=== PATIENT | male | born 1940 | race Caucasian/White ===

== ENCOUNTER 2022-04-21 08:07 | Inpatient (IN) | payer MEDICARE, OTHER, SELFPAY ==
[2022-04-21] VITALS (19 sets, daily range): BP systolic 79–121; BP diastolic 48–90; PULSE 89–144; RESP 16–28; TEMP 35.9–37.1; O2SAT 96–100; BMI 23.8; BMI 21.8
--- NOTE | 2022-04-21 08:13 | RAD_ITS ---
STUDY: X-RAY CHEST REASON FOR EXAM: Male, 81 years old. Dyspnea TECHNIQUE: Single AP portable view of the chest. The patient is rotated to the right. COMPARISON: None. FINDINGS: There is elevation of the bilateral hemidiaphragms. The lung bases are mostly obscured. The patient is rotated to the right. There is a focus of subtle linear interstitial thickening in the right upper lobe. There is no demonstrated pleural abnormality. There is borderline cardiomegaly. Normal mediastinum and minesh. Normal visualized pulmonary arteries. Normal visualized aortic arch and descending thoracic aorta. Normal visualized thoracic spine. Normal visualized ribs, clavicles, and shoulders. Postoperative changes right upper quadrant status post cholecystectomy. RAD/Chest 1 View (Portable) IMPRESSION: Limited study. The patient is rotated towards the right. No visualized focal infiltrate. Findings suggest scarring possible underlying emphysematous change right upper lobe. Electronically Signed: Yoselin Vasquez MD at 9:31 EST Reading Location ID and State: [facility] / [place] Tel , Service support ,
--- NOTE | 2022-04-21 08:15 | ED.VIS.DYS ---
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 He woke up this morning short of breath. He denies any palpitations. In A. fib with RVR per EMS, patient has no idea if he has a history of this or not and cannot provide any other history except for confirming the above and ROS questions. Patient evaluated prior to any family arriving. He states he is on aspirin and clopidogrel but does not know any of his other medications. No records in the system/EMR for this gentleman. Family later arrived and states he has been following at [facility] and known about A. fib for the past month or 2 only. Not anticoagulated, but he has been on clopidogrel because of peripheral arterial disease in the right carotid that led to his stroke involving the left side. [facility] Medical History Stroke Medical History unable to obtain unable to obtain Home Medications amlodipine 2.5 mg tablet 2.5 mg PO DAILY 04/21/22 [History Last Taken Unknown] aspirin 81 mg tablet,delayed release 81 mg PO DAILY 04/21/22 [History Last Taken Unknown] atorvastatin 10 mg tablet 10 mg PO DAILY 04/21/22 [History Last Taken Unknown] clopidogrel 75 mg tablet 75 mg PO DAILY 04/21/22 [History Last Taken Unknown] finasteride 5 mg tablet 5 mg PO DAILY 04/21/22 [History Last Taken Unknown] levetiracetam 500 mg tablet 500 mg PO BID 04/21/22 [History Last Taken Unknown] lisinopril 10 mg tablet 10 mg PO DAILY 04/21/22 [History Last Taken Unknown] potassium chloride 20 mEq tablet,extended release(part/cryst) (Klor-Con M) 20 meq PO BID 04/21/22 [History Last Taken Unknown] propranolol 160 mg capsule,24 hr,extended release 160 mg PO DAILY 04/21/22 [History Last Taken Unknown] Allergy/AdvReac Type Severity Reaction Status Date / Time niacin Allergy Hives Verified 04/21/22 08:46 [From Niaspan Extended-Release] Surgical History (Updated 04/21/22 @ 08:59 by Wilda Cespedes) History of left hip replacement History of left-sided carotid endarterectomy Social History Smoking Status: Former smoker ROS ROS ED Review of Systems ROS Unobtainable: other Details: limited due to very hard of hearing Constitutional Constitutional ED: Denies chills or fever(s) Eyes Eyes: Denies change in vision or diplopia ENT ENT ED: Denies rhinorrhea or sore throat Cardiovascular Cardiovascular: Denies chest pain or palpitations Respiratory/Chest Respiratory/Chest: Reports dyspnea; Denies cough Gastrointestinal Gastrointestinal: Denies abdominal pain, diarrhea, nausea or vomiting Genitourinary Genitourinary ED: Denies dysuria or hematuria Musculoskeletal Musculoskeletal: Denies back pain or neck pain Integumentary Denies abscess or rash Neurologic Neurologic: Denies headache(s), paresthesias or weakness Psychiatric Psychiatric: Denies anxiety or suicidal thoughts Hematologic/Lymphatic Hematologic/Lymphatic: Reports easy bleeding and easy bruising EXAM Physical Exam Const Vital Signs: 04/21/22 08:07 04/21/22 08:07 04/21/22 08:54 Temperature 96.6 F L Temperature Source Temporal Pulse Rate 144 H 137 H Respiratory Rate 28 H 22 H Blood Pressure 87/48 L 101/70 89/53 L Blood Pressure Mean 61 80 65 Pulse Ox 100 Oxygen Delivery Method Nasal Cannula Oxygen Flow Rate (L/min) 4 04/21/22 08:11 04/21/22 09:00 04/21/22 10:11 Temperature 96.6 F L 97.6 F L Temperature Source Temporal Temporal Pulse Rate 144 H 90 94 Respiratory Rate 28 H 18 20 H Blood Pressure 87/48 L 79/55 L 79/65 L Blood Pressure Mean 61 63 69 Pulse Ox 97 99 99 Oxygen Delivery Method Nasal Cannula Nasal Cannula Nasal Cannula Oxygen Flow Rate (L/min) 4 04/21/22 10:00 04/21/22 11:00 04/21/22 13:17 Temperature Temperature Source Pulse Rate 96 89 98 Respiratory Rate 20 H 20 H 19 H Blood Pressure 90/51 L 109/71 114/90 H Blood Pressure Mean 64 83 98 Pulse Ox 99 100 100 Oxygen Delivery Method Nasal Cannula Nasal Cannula Nasal Cannula Oxygen Flow Rate (L/min) 4 04/21/22 13:31 04/21/22 14:16 04/21/22 14:18 Temperature 98.8 F 98.3 F 98.3 F Temperature Source Temporal Temporal Temporal Pulse Rate 113 H 101 H 105 H Respiratory Rate 18 22 H 20 H Blood Pressure 121/69 H 108/81 H 108/81 H Blood Pressure Mean 86 90 90 Pulse Ox 99 100 100 Oxygen Delivery Method Nasal Cannula Room Air Venturi Mask Oxygen Flow Rate (L/min) 3 4 Positive well nourished and well developed General Appearance ED: well developed and NAD HEENT Reports moist mucous membranes normocephalic and atraumatic Eyes PERRL and EOMs intact bilaterally Neck full ROM, no lymphadenopathy, supple and no JVD Resp clear to auscultation bilaterally Resp Narrative: tachypneic, no distress. able to converse. Cardio Rate: tachycardic Rhythm: abnormal rhythm irregularly irregular GI non-tender and non-distended Auscultation: normoactive bowel sounds Palpation: soft Back/Spine no CVA tenderness General Back: other FROM Extremity normal to inspection General Extremety ED: Yes edema; Negative for pulses abnormal or tenderness General Extremity: edema bilateral lower extremity Details: mild (Worse on the left); Negative for pulses abnormal Neuro oriented x3 and CN's II-XII intact bilaterally Neuro Narrative: Paralyzed left upper and lower extremities with also decreased sensation. Brisk cap refill. Sensorium / Orientation: awake and alert Psych mental status grossly normal Skin no rashes or lesions noted and no wounds Sepsis Attestation Sepsis Attestation: Agree w/Sepsis (Initially VS abnormal thought more likely to A. fib with RVR than infection) Date exam was performed: 04/21/22 Time exam was performed: 09:00 Possible Source of Sepsis: Pulmonary and Genitourinary (after testing) Sepsis Organ Dysfunction Criteria Present: SBP < 90 mmHg or MAP < 65 mmHg, Lactic Acid > 2 mmol/L and Serum CO2 < 20 mmol/L (on BMP) Fluid Resuscitation Fluid resuscitation indicated?: Yes Fluid Resuscitation ordered: 30 ml/kg fluid bolus ordered Sepsis Note Date exam was performed: 04/21/22 Time exam was performed: 14:00 Sepsis Attestation: Sepsis re-evaluation was performed Response to fluids: Fluid responsive hypotension MDM MDM MDM Narrative Medical decision making narrative: Patient blood pressure is on the low side, he was bolused with normal saline simultaneous with giving him Cardizem 15 mg IV. This slowed his rate down to the 80-90s and he felt much better without any other treatments for his dyspnea. We have no records on him, and he is not anticoagulated. He does not know if he has a history of A. fib or not. Therefore I did more of a work-up than I would have otherwise including a D-dimer to rule out pulmonary embolus. It was elevated, we attempted to send him for CT angiography to rule out pulmonary embolus, which I made a low suspicion for given the rest of the work-up, however this patient is a very difficult stick, we were not able to obtain more proximal IV access than his hand, and so we are not able to physically perform CT angiography. I did send him for a plain CT of the chest in order to rule out occult pneumonia, it was negative for that, it took a while for him to produce enough urine to send, this is likely due to some dehydration, and this ended up showing lots of infection indicators. Lab was not able to obtain blood cultures due to him being a very difficult stick, he looks well since we brought his blood pressure up with fluids, we will make sure he gets the full 30 cc/kg bolus, has now that he has an infection, he meets criteria for sepsis due to his elevated lactate. He does not require pressors at this time, his blood pressure is now holding stable 121/69, and he is breathing better since we rate controlled him. Plan is for admission, empirically given Rocephin IV 1 g. I did send his urine for a culture. Discussed further with family, they confirmed that the patient has a living will that states he is DNR CCA. Lab Data Attestation: I reviewed the patient's lab results. Labs: Laboratory Results - last 24 hr 04/21/22 04/21/22 04/21/22 09:27 09:27 09:27 WBC 25.5 H RBC 4.49 L Hgb 13.3 Hct 41.1 MCV 91.5 MCH 29.6 MCHC 32.4 RDW Std Deviation 46.9 H RDW Coeff of Kan 13.9 Plt Count 308 MPV 9.8 Immature Gran % (Auto) 0.400 Neut % (Auto) 93.0 H Lymph % (Auto) 2.6 L Moore % (Auto) 3.8 Eos % (Auto) 0.0 Baso % (Auto) 0.2 Absolute Neuts (auto) 23.7 H Absolute Lymphs (auto) 0.66 L Nucleated RBC % 0 Platelet Estimate ADEQUATE RBC Morphology NORM C+C D-Dimer Quant (PE/DVT) 2.44 H* Sodium 144 Potassium 4.1 Chloride 117 H Carbon Dioxide 17.0 L Anion Gap 10 BUN 37 H Creatinine 1.19 Estim Creat Clear Calc 50.09 Est GFR (MDRD) Af Amer 75 Est GFR (MDRD) Non-Af 62 BUN/Creatinine Ratio 31.1 H Glucose 90 Lactic Acid Calcium 8.5 Troponin I High Sens 6 B-Natriuretic Peptide Urine Color Urine Clarity Urine pH Ur Specific Frannie Urine Protein Urine Glucose (UA) Urine Ketones Urine Occult Blood Urine Nitrite Urine Bilirubin Urine Urobilinogen Ur Leukocyte Esterase Urine RBC Urine WBC Ur Squamous Epith Cells Urine Bacteria Urine Mucus 04/21/22 04/21/22 04/21/22 09:27 11:00 13:25 WBC RBC Hgb Hct MCV MCH MCHC RDW Std Deviation RDW Coeff of Kan Plt Count MPV Immature Gran % (Auto) Neut % (Auto) Lymph % (Auto) Moore % (Auto) Eos % (Auto) Baso % (Auto) Absolute Neuts (auto) Absolute Lymphs (auto) Nucleated RBC % Platelet Estimate RBC Morphology D-Dimer Quant (PE/DVT) Sodium Potassium Chloride Carbon Dioxide Anion Gap BUN Creatinine Estim Creat Clear Calc Est GFR (MDRD) Af Amer Est GFR (MDRD) Non-Af BUN/Creatinine Ratio Glucose Lactic Acid 4.5 H* Calcium Troponin I High Sens B-Natriuretic Peptide 254.1 H Urine Color Ivett Urine Clarity Sl. Cloudy Urine pH 5.0 Ur Specific Frannie 1.015 Urine Protein 30 H Urine Glucose (UA) Normal Urine Ketones 5 H Urine Occult Blood 25 H Urine Nitrite Positive H Urine Bilirubin 3 H Urine Urobilinogen 8 H Ur Leukocyte Esterase 500 H Urine RBC 0 SEEN Urine WBC 10-25 SEEN Ur Squamous Epith Cells 0 SEEN Urine Bacteria 4+ Urine Mucus 0 SEEN Radiography Chest X-Ray - ED: 1 View, Read by ED Physician, No Acute Disease (limited due to rotation) and Chronic Changes Diagnostic Testing: Clinical Impression(s) from Imaging Studies Chest X-Ray 04/21/22 08:13 IMPRESSION: Limited study. The patient is rotated towards the right. No visualized focal infiltrate. Findings suggest scarring possible underlying emphysematous change right upper lobe. Electronically Signed: Yoselin Vasquez MD at 9:31 EST , Chest CT 04/21/22 10:30 IMPRESSION: Minimal right lower lobe atelectasis trace effusion. Otherwise there is pulmonary emphysema and chronic obstructive pulmonary disease. No focal consolidation. Cardiomegaly coronary disease. There is a fatty hiatal hernia. Status post cholecystectomy Degenerative change of the thoracolumbar spine with chronic loss of height at level T12 and L1. Electronically Signed: Yoselin Vasquez MD at 13:52 EST , Rhythm Strip Rhythm Strip: A-fib Rate: 140 Ectopy: None EKG Initial EKG: Attestation: I personally reviewed and interpreted this EKG as follows: Interpretation: No Acute Injury Pattern and Atrial Fibrillation (w/ RVR) Prior: No Prior Critical Care Time Critical Care Time: Yes Critical care time (excluding procedures): 30-74 minutes (40 min), Including time spent:, Discussing w/Patient &/or Family/Waste Cotton Cleaner, Discussing w/Consultants, Arranging Admission or Transfer and Performing Direct Patient Care at Bedside Discharge Plan Dx/Rx/DC Orders Clinical Impression: Septic shock, Urinary tract infection, Atrial fibrillation with RVR Disposition Disposition: Acute Care [facility]
[2022-04-21] MEDS: Ondansetron 4 MG/2 ML Vial IV (08:51)
[2022-04-21] MEDS: dilTIAZem 25 MG/5 ML Vial 15 MG IV BOLUS (08:52)
--- NOTE | 2022-04-21 09:23 | ED.RN ---
BP LOW DUE TO A FIB RVR. NOT A SEPSIS
[2022-04-21 09:34] LABS: Absolute Lymphocyte Count 0.66 X10^3/uL (0.83-4.51); Absolute Neutrophil Count 23.7 X10^3/uL (2.0-7.7); Basophil# 0.05 X10^3/uL; Basophil% 0.2 % (0-1); Eosinophil# 0.01 X10^3/uL; Hematocrit 41.1 % (40-54); Hemoglobin 13.3 g/dL (13.0-16.5); Lymphocyte # 0.66 X10^3/ul (0.83-4.51); Lymphocyte % 2.6 % (19-41); Mean Corp Hgb Conc 32.4 g/dL (32-36); Mean Corpuscular Hgb 29.6 pg (27.0-32.0); Mean Corpuscular Volume 91.5 fL (80-94); Mean Platelet Vol. 9.8 fl (6.2-12.0); Monocyte# 0.97 X10^3/uL; Monocyte% 3.8 % (0-10); NRBC Flagged by Analyzer 0 % (0-5); POSITIVE DIFFERENTIAL YES; Platelet Count 308 K/mm3 (150-450); RBC Distribution Width CV 13.9 % (11.6-14.6); RBC Distribution Width SD 46.9 fl (35.1-43.9); Red Blood Count 4.49 M/mm3 (4.6-6.2); White Blood Count 25.5 K/mm3 (4.4-11.0)
[2022-04-21 09:35] LABS: Differential Indicated SCAN CRITERIA MET
[2022-04-21 09:51] LABS: Anion Gap 10 (5-15); BUN 37 mg/dL (7-18); BUN/Creat Ratio 31.1 RATIO (10-20); Calcium,Total 8.5 mg/dL (8.5-10.1); Chloride 117 mmol/L (98-107); Creatinine, Serum 1.19 mg/dL (0.70-1.30); EST Glomerular Filtration Rate 62 mL/min (>60); Est Glom Filt Rate - Afr Amer 75 mL/min (>60); Estimated Creatinine Clearance 50.09 ml/min; Glucose 90 mg/dL (74-106); Potassium 4.1 mmol/L (3.5-5.1); Sodium Level 144 mmol/L (136-145); Troponin-I HS 6 pg/mL (3.0-78.0)
[2022-04-21 09:52] LABS: BNP,B-Type NATRIURETIC PEPTIDE 254.1 pg/mL (0-100)
[2022-04-21 09:59] LABS: D-Dimer Quantitative (DVT/PE) 2.44 FEU/ug/m (0.27-0.49)
[2022-04-21 10:03] LABS: Platelet Estimate ADEQUATE (ADEQ); Red Cell Morphology NORM C+C NORMAL (NORM C&C)
--- NOTE | 2022-04-21 10:30 | CT_ITS ---
INDICATION: leukocytosis, hypotension, nml CXR EXAMINATION: CT CHEST WITHOUT CONTRAST - CT Chest W/O Contrast Injection TECHNIQUE: Helically acquired images were obtained of the chest. A radiation dose optimization technique was used for this scan. IV Contrast dosage and agent: None. There is visualized impression artifact in this study. COMPARISON: Chest x-ray April 21, 2022 FINDINGS: LUNGS, PLEURA AND LARGE AIRWAYS: The visualized emphysematous change throughout the lungs. There is a focus of scarring or linear density within the right upper lobe similar to prior studies. There is no visualized focal consolidation. There is minimal right pleural effusion or atelectasis. Within the proximal esophagus just below the level of the thyroid there is visualized focal nonobstructive narrowing. THYROID: No thyroid lesions. HEART AND PERICARDIUM: There is mild to moderate cardiac enlargement. There are dense coronary artery calcifications. There is a trace pericardial effusion. CORONARY ARTERIES: Coronary artery calcification is seen. VESSELS: There is tortuous and partially calcified. MEDIASTINUM AND LEANNE: There are several reactive appearing mediastinal lymph nodes measuring up to 1.3 cm. There is a lymph node measuring 1.0 cm in AP window. There is subcarinal lymphadenopathy measuring up to 1.3 to 1.3 cm. There is a suggestion of a small focus of shotty appearing lymph nodes at the level of the gastroesophageal junction. There is a focus of fatty herniation surrounding the distal esophagus. There is an adjacent lymph node measuring 6.2 mm. There is minor hernia which contains mostly fat. This measures up to 3.0 x 5.0 cm. UPPER ABDOMEN: Postoperative changes status post cholecystectomy. There is prominence of the bilateral perinephric fat. There is atherosclerotic disease of the abdominal aorta. The abdominal aorta measures up to 3.3 x 3.0 cm at the level the renal arteries. BONES: There is visualized chronic loss of height at the level of T12 and L1. There is a near collapsed appearance of L1. There is bridging osteophytosis of the thoracolumbar spine. There are a few visualized gas bubbles within the venous structures of the right neck. Likely from IV placement. CT/Chest without Contrast IMPRESSION: Minimal right lower lobe atelectasis trace effusion. Otherwise there is pulmonary emphysema and chronic obstructive pulmonary disease. No focal consolidation. Cardiomegaly coronary disease. There is a fatty hiatal hernia. Status post cholecystectomy Degenerative change of the thoracolumbar spine with chronic loss of height at level T12 and L1. Electronically Signed: Yoselin Vasquez MD at 13:52 EST Reading Location ID and State: [facility] / [place] Tel , Service support ,
[2022-04-21 11:34] LABS: Lactic Acid 4.5 mmol/L (0.4-1.9)
--- NOTE | 2022-04-21 11:34 | ED.RN ---
lab called lactic of 4.5. dr olivo
[2022-04-21] MEDS: 0.9% Normal Saline 1,000 ML 100 ML IV ×2 (11:46→23:15)
--- NOTE | 2022-04-21 13:15 | SUR.HOLD ---
This nurse taking over care for patient at this time
[2022-04-21 13:29] LABS: Mucous, Urine 0 SEEN /hpf (<or=2+); Red Blood Cells-Urine 0 SEEN /hpf (0-5); Squamous Epithelial Cells - UA 0 SEEN /hpf (0-5)
[2022-04-21 13:30] LABS: Color, Urine Amber (Yellow); Glucose, Dipstick Normal (Normal); Ketone-Dipstick 5 mg/dl (Negative); Leukocyte Esterase-Dipstick 500 /ul (Negative); Nitrite-Dipstick Positive (Negative); Occult Blood-Urine 25 /ul (Negative); Protein-Dipstick 30 mg/dl (Negative); Specific Gravity, Urine 1.015 (1.002-1.030); Urine Clarity Sl. Cloudy (Clear); Urine Urobilinogen 8 mg/dl (Normal)
--- NOTE | 2022-04-21 13:32 | NURSING ---
Patient on maintenance fluids of 1L at 100ml/hour. There are order errors in MAR that charge and doctor are working on correcting. This 100,;/hr x 1 L continuous is per report from previous RN
[2022-04-21 13:47] LABS: Urine Bilirubin Dipstick 3 mg/dL (Negative)
[2022-04-21 13:48] LABS: Bacteria 4+ /hpf (None Seen); White Blood Cells 10-25 SEEN /hpf (0-5)
[2022-04-21] MEDS: Ceftriaxone 1 GM/50 ML BAG IV (14:16)
--- NOTE | 2022-04-21 14:32 | ED.RN ---
Blood cultures cancelled because not able to get more blood from patient after 6 attempts by Er staff and 4 by lab. Also, unable to obtain second lactic. Dr huizar is aware and we are not doing fem stick or central line at this time. Cultures cancelled and atb were initated for postive urine.
--- NOTE | 2022-04-21 14:53 | ED.RN ---
Talked with Dr Persaud and patient had 1500ml bolus, wide open. Still need one more liter to complete the bolus resuscitation. Maintenance fluids paused and 1L wide open started.
[2022-04-21 15:07] LABS: Reflex Lactate? Y
--- NOTE | 2022-04-21 15:07 | ECHOCS_ITS ---
Reason For Study: AFIB Procedure This was a 2D Doppler, Color Flow transthoracic echocardiogram. The study was technically limited. Contrast injection was performed. Exam performed portable in patient room. Left Ventricle Normal LV size. Moderate concentric left ventricular hypertrophy. The left ventricular ejection fraction is 55 %. Right Ventricle Normal right ventricle. Atria The left atrium is severely enlarged. The right atrium is mildly enlarged. Mitral Valve Mild (1+) mitral valve insufficiency. Tricuspid Valve Moderately severe (3+) tricuspid valve insufficiency. Mild pulmonary hypertension. Aortic Valve Mild-Moderate (1-2+) aortic valve insufficiency. Pulmonic Valve The pulmonic valve is not well visualized. Great Vessels Mildly dilated aortic root. Pericardium/Pleural No pericardial effusion. Medication Diluted definity 1.5ml given slow IV push to enhance endocardial definition. MMode/2D Measurements & Calculations LVIDd: 4.5 cm IVSd: 1.4 cm Ao root diam: 3.4 cm LVIDs: 3.7 cm LVPWd: 1.5 cm FS: 18.8 % LAV(MOD-bp): 101.1 ml LVAd ap4: 29.3 cm2 SV(MOD-sp4): 48.4 ml LAV(MOD-bp) Indexed: 53.3 ml/m2 LVLd ap4: 7.1 cm LAV(MOD-sp2): 89.7 ml EDV(MOD-sp4): 95.7 ml LAV(MOD-sp4): 95.8 ml EDV(sp4-el): 102.1 ml LVAs ap4: 18.4 cm2 LVLs ap4: 5.7 cm ESV(MOD-sp4): 47.2 ml ESV(sp4-el): 50.5 ml EF(MOD-sp4): 50.6 % EF(sp4-el): 50.6 % SV(sp4-el): 51.6 ml LA A4 area: 31.6 cm2 LA dimension(2D): 6.4 cm RA A4 area: 25.8 cm2 Doppler Measurements & Calculations MV E max raina: 74.4 cm/sec MV V2 max: 80.4 cm/sec Ao V2 max: 101.2 cm/sec MV max P.6 mmHg Ao max P.2 mmHg MV V2 mean: 49.7 cm/sec Ao V2 mean: 74.6 cm/sec MV mean P.2 mmHg Ao mean P.5 mmHg MV V2 VTI: 11.4 cm Ao V2 VTI: 13.0 cm AV (velocity ratio): 0.90 AI max raina: 424.7 cm/sec LV V1 max: 70.7 cm/sec TR max raina: 314.0 cm/sec AI max P.1 mmHg LV V1 max P.0 mmHg TR max P.4 mmHg LV V1 mean P.98 mmHg AI dec slope: 205.0 cm/sec2 LV V1 mean: 46.0 cm/sec AI P1/2t: 606.7 msec LV V1 VTI: 11.6 cm ECHO/Echo Complete W/ Contrast Interpretation Summary Diluted definity 1.5ml given slow IV push to enhance endocardial definition. Moderate concentric left ventricular hypertrophy. The left ventricular ejection fraction is 55 %. The left atrium is severely enlarged. Mild (1+) mitral valve insufficiency. Moderately severe (3+) tricuspid valve insufficiency. Mild pulmonary hypertension. Mild-Moderate (1-2+) aortic valve insufficiency. Mildly dilated aortic root. Ordering Physician: Hillary Danielle Referring Physician: MD Geri En Performed By: Demetria Jaquez RCS
--- NOTE | 2022-04-21 15:08 | HP.PCM.HOS_ITS ---
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 fib with RVR and possibly to have a urinary tract infection. He was given IV Cardizem and heart rate improved and his respiratory status improved after that as well though he had continued shortness of breath. Did have an elevated D-dimer of unclear significance, CTA was not obtained due to inability to get further access. Was not hypoxic and heart rate improved but given elevated lactic acid with UA suggestive of UTI elevated white blood cell count hospitalist contacted for admission. Patient seen with family at bedside, reportedly has been increasingly weak over the past 6 months or so with 2 months of increasing shortness of breath but it worsened significantly this morning. At some point was diagnosed with atrial fibrillation and is due to follow with cardiology in April but has not been started on anticoagulation. Does use aspirin and Plavix however given his history of CVA and carotid stenosis. With improved heart rate does endorse that shortness of breath is somewhat better but still present, not coughing. Noncon CT in the ED with some emphysema and COPD but no focal consolidation. Flu and COVID-negative, respiratory panel pending. No other complaints voiced, denied any suprapubic tenderness, no pain on urination. [facility] Medical History Stroke Medical History unable to obtain Home Medications amlodipine 2.5 mg tablet 2.5 mg PO DAILY 04/21/22 [History Last Taken Unknown] aspirin 81 mg tablet,delayed release 81 mg PO DAILY 04/21/22 [History Last Taken Unknown] atorvastatin 10 mg tablet 10 mg PO DAILY 04/21/22 [History Last Taken Unknown] clopidogrel 75 mg tablet 75 mg PO DAILY 04/21/22 [History Last Taken Unknown] finasteride 5 mg tablet 5 mg PO DAILY 04/21/22 [History Last Taken Unknown] levetiracetam 500 mg tablet 500 mg PO BID 04/21/22 [History Last Taken Unknown] lisinopril 10 mg tablet 10 mg PO DAILY 04/21/22 [History Last Taken Unknown] potassium chloride 20 mEq tablet,extended release(part/cryst) (Klor-Con M) 20 meq PO BID 04/21/22 [History Last Taken Unknown] propranolol 160 mg capsule,24 hr,extended release 160 mg PO DAILY 04/21/22 [History Last Taken Unknown] Allergy/AdvReac Type Severity Reaction Status Date / Time niacin Allergy Hives Verified 04/21/22 08:46 [From Niaspan Extended-Release] Surgical History (Updated 04/21/22 @ 08:59 by Wilda Cespedes) History of left hip replacement History of left-sided carotid endarterectomy Social History Smoking Status: Former smoker ROS Constitutional Constitutional: Denies change in weight, chills, fever(s) or night sweats Eyes Eyes: Denies change in vision ENT HEENT: Denies headache(s), nasal congestion or sore throat Cardiovascular Cardiovascular: Denies chest pain or palpitations Respiratory/Chest Respiratory/Chest: Reports other Details: Worsening shortness of breath over couple months but significantly worsened this morning ; Denies cough or productive cough Gastrointestinal Gastrointestinal: Reports other Details: denies changes in bowel or bladder ; Denies abdominal pain Genitourinary Genitourinary: Reports other Details: denies changes in urination Musculoskeletal Musculoskeletal: Denies joint pain Neurologic Neurologic: Reports other Details: Chronic left-sided upper and lower paralysis ; Denies dizziness or headache(s) Psychiatric Psychiatric: Denies anxiety Hematologic/Lymphatic Hematologic/Lymphatic: Reports easy bleeding and easy bruising Allergic/Immunologic Allergic/Immunologic: Reports other Details: denies rashes Vital Signs Vital Signs Vital Signs: 04/21/22 08:07 04/21/22 08:07 04/21/22 08:54 Temperature 96.6 F L Temperature Source Temporal Pulse Rate 144 H 137 H Respiratory Rate 28 H 22 H Blood Pressure 87/48 L 101/70 89/53 L Blood Pressure Mean 61 80 65 Pulse Ox 100 Oxygen Delivery Method Nasal Cannula Oxygen Flow Rate (L/min) 4 04/21/22 08:11 04/21/22 09:00 04/21/22 10:11 Temperature 96.6 F L 97.6 F L Temperature Source Temporal Temporal Pulse Rate 144 H 90 94 Respiratory Rate 28 H 18 20 H Blood Pressure 87/48 L 79/55 L 79/65 L Blood Pressure Mean 61 63 69 Pulse Ox 97 99 99 Oxygen Delivery Method Nasal Cannula Nasal Cannula Nasal Cannula Oxygen Flow Rate (L/min) 4 04/21/22 10:00 04/21/22 11:00 04/21/22 13:17 Temperature Temperature Source Pulse Rate 96 89 98 Respiratory Rate 20 H 20 H 19 H Blood Pressure 90/51 L 109/71 114/90 H Blood Pressure Mean 64 83 98 Pulse Ox 99 100 100 Oxygen Delivery Method Nasal Cannula Nasal Cannula Nasal Cannula Oxygen Flow Rate (L/min) 4 04/21/22 13:31 04/21/22 14:16 04/21/22 14:18 Temperature 98.8 F 98.3 F 98.3 F Temperature Source Temporal Temporal Temporal Pulse Rate 113 H 101 H 105 H Respiratory Rate 18 22 H 20 H Blood Pressure 121/69 H 108/81 H 108/81 H Blood Pressure Mean 86 90 90 Pulse Ox 99 100 100 Oxygen Delivery Method Nasal Cannula Room Air Venturi Mask Oxygen Flow Rate (L/min) 3 4 Weight Weight: 77.6 kg Body Mass Index (BMI) 23.8 Physical Exam Const alert Constitutional Narrative: Oriented HEENT normocephalic and head/scalp atraumatic Eyes Eyes Narrative: EOM grossly intact, anicteric Neck supple Resp Resp Narrative: Slight increased work of breathing, no wheezes or she Cardio regular rate Cardio Narrative: Regular rate at time of exam GI soft to palpation, non-tender and non-distended Extremity Extremity Narrative: No edema appreciated Neuro Neuro Narrative: Paralysis of left lower and upper extremity, no other focal deficits appreciated Psych Psych Narrative: Cooperative Results Lab / Micro Data Result Diagrams: 04/21/22 09:27 04/21/22 09:27 Labs: Laboratory Results - last 24 hr 04/21/22 09:27: WBC 25.5 H, RBC 4.49 L, Hgb 13.3, Hct 41.1, MCV 91.5, MCH 29.6, MCHC 32.4, RDW Std Deviation 46.9 H, RDW Coeff of Kan 13.9, Plt Count 308, MPV 9.8, Immature Gran % (Auto) 0.400, Neut % (Auto) 93.0 H, Lymph % (Auto) 2.6 L, Mills % (Auto) 3.8, Eos % (Auto) 0.0, Baso % (Auto) 0.2, Absolute Neuts (auto) 23.7 H, Absolute Lymphs (auto) 0.66 L, Nucleated RBC % 0, Platelet Estimate ADEQUATE, RBC Morphology NORM C+C 04/21/22 09:27: D-Dimer Quant (PE/DVT) 2.44 H* 04/21/22 09:27: Sodium 144, Potassium 4.1, Chloride 117 H, Carbon Dioxide 17.0 L , Anion Gap 10, BUN 37 H, Creatinine 1.19, Estim Creat Clear Calc 50.09, Est GFR (MDRD) Af Amer 75, Est GFR (MDRD) Non-Af 62, BUN/Creatinine Ratio 31.1 H, Glucose 90, Calcium 8.5, Troponin I High Sens 6 04/21/22 09:27: B-Natriuretic Peptide 254.1 H 04/21/22 11:00: Lactic Acid 4.5 H* 04/21/22 13:25: Urine Color Ivett, Urine Clarity Sl. Cloudy, Urine pH 5.0, Ur Specific Sawyer 1.015, Urine Protein 30 H, Urine Glucose (UA) Normal, Urine Ketones 5 H, Urine Occult Blood 25 H, Urine Nitrite Positive H, Urine Bilirubin 3 H, Urine Urobilinogen 8 H, Ur Leukocyte Esterase 500 H, Urine RBC 0 SEEN, Urine WBC 10-25 SEEN, Ur Squamous Epith Cells 0 SEEN, Urine Bacteria 4+, Urine Mucus 0 SEEN Micro: Microbiology 04/21/22 09:00 Nasal Secretion SARS-CoV-2 & FLU Antigen (Rapid) - Final Rhythm Strip Rhythm Strip: A-fib Rate: 140 Ectopy: None Radiology Impression Chest X-Ray 04/21/22 08:13 IMPRESSION: Limited study. The patient is rotated towards the right. No visualized focal infiltrate. Findings suggest scarring possible underlying emphysematous change right upper lobe. Electronically Signed: Yoselin Vasquez MD at 9:31 EST , Chest CT 04/21/22 10:30 IMPRESSION: Minimal right lower lobe atelectasis trace effusion. Otherwise there is pulmonary emphysema and chronic obstructive pulmonary disease. No focal consolidation. Cardiomegaly coronary disease. There is a fatty hiatal hernia. Status post cholecystectomy Degenerative change of the thoracolumbar spine with chronic loss of height at level T12 and L1. Electronically Signed: Yoselin Vasquez MD at 13:52 EST , Assessment & Plan Assessment/Plan (1) Sepsis: (2) Atrial fibrillation with RVR: PLAN: Plan #Sepsis secondary to urinary tract infection Elevated white count and elevated lactic acid Tachycardic though was in A. fib with RVR, may be in part compensatory tachycardia as well Was started on Rocephin Trend lactic Cultures ordered #Shortness of breath Appears to have some baseline COPD on CT Has been worsening over months and then significantly worsened today but was found to be in A. fib with RVR, breathing improved with improvement of heart rate D-dimer was elevated, unable to get CTA in ED Does have elevated [id number] or however and would need anticoagulated from an atrial fibrillation standpoint, will start heparin drip without bolus Will get V/Q scan however as he may not be a good candidate for long-term anticoagulant therapy but will need to discuss further with him and his family will wait on v/q scan results #A. fib with RVR Improved with Cardizem bolus Will start metoprolol twice daily and uptitrate Echo pending Started on heparin #History of CVA Aspirin Given starting anticoagulation hold Plavix at this time Continue atorvastatin #DVT ppx: Started on heparin Hillary Danielle MD Charges/Coding Visit Charges Inpatient E&M: 31724 Init Hosp L2
[2022-04-21] MEDS: 0.9% Normal Saline 1,000 ML 999 ML IV (15:14)
--- NOTE | 2022-04-21 19:56 | NM_ITS ---
CLINICAL: 81-year-old male with history of shortness of breath and elevation of the d-dimer. VENTILATION-PERFUSION LUNG SCINTIGRAPHY COMPARISON: Plain film chest radiograph report 04/21/2022 FINDINGS: The patient was administered 48.4 mCi 99m Tc DTPA aerosol. The aerosol ventilation study demonstrates heterogeneous ventilation in the bilateral lung andrade without corresponding radiographic changes visualized on review of plain film chest x-ray dated 04/21/2022. Central clumping of the aerosol is left hemithorax. Following the intravenous administration of 5.6 mCi of 99m Tc MAA, the pulmonary perfusion study reveals matching non-uniform perfusion in the right and left lungs correlating with the previously defined ventilation pattern. No moderate subsegmental or large segmental ventilation-perfusion mismatches are noted. There are regions of retained normal perfusion visualized. NM/Lung Scan Vent/Perf IMPRESSION: 1. VERY LOW PROBABILITY FOR PULMONARY EMBOLUS (<10%) 99m Tc DTPA aerosol ventilation / 99m Tc MAA pulmonary perfusion imaging examination, according to PIOPED II interpretive criteria with regard given to the presence of > 2 ventilation-perfusion matches without corresponding radiographic changes. (Sotsman et al, Radiology 246: 941, 2008 Socaden et al, J Nucl Med 49: 1741, 2008). 2. Central clumping of the aerosol may be secondary to obstructive airway mechanics and or clinical tachypnea. Electronically Signed: Marco Hansen, at 10:14 EST ,
[2022-04-21] MEDS: MELATONIN 10 MG TABLET PO (21:00)
[2022-04-21] MEDS: Metoprolol Tartrate 25 MG Tablet 12.5 MG PO (21:00)
[2022-04-21] MEDS: levETIRAcetam 500 MG Tablet PO (21:00)
[2022-04-21 21:36] LABS: Platelet Count 202 K/mm3 (150-450)
[2022-04-21 21:46] LABS: Partial Thromboplast Time 22.8 Seconds (24.1-36.2)
[2022-04-21] MEDS: HEPARIN/D5w 25,000 UNITS 25,000 UNITS/250 ML IV.SOLN. 11 UNITS CONT INF (22:00)
[2022-04-21] MEDS: Menthol/Lanolin/Calamine/Znox 113 GM Tube 1 APPLIC TOPICAL (23:14)
[2022-04-22] VITALS (14 sets, daily range): BP systolic 102–145; BP diastolic 71–104; PULSE 84–136; RESP 18–24; TEMP 36.3–37; O2SAT 96–100
[2022-04-22 04:37] LABS: Hematocrit 35.8 % (40-54); Hemoglobin 11.1 g/dL (13.0-16.5); Mean Corpuscular Hgb 28.5 pg (27.0-32.0); Mean Corpuscular Volume 91.8 fL (80-94); Mean Platelet Vol. 10.2 fl (6.2-12.0); Platelet Count 215 K/mm3 (150-450)
[2022-04-22 04:57] LABS: Partial Thromboplast Time 86.8 Seconds (24.1-36.2)
[2022-04-22 05:14] LABS: ALB/GLOB Ratio 0.9 RATIO (0.9-2.4); AST(SGOT) 122 U/L (15-37); Alanine Aminotransfer ALT/SGPT 151 U/L (16-61); Albumin, Serum 2.3 g/dL (3.2-5.0); Alkaline Phosphatase 288 U/L (45-117); Anion Gap 5 (5-15); BUN 37 mg/dL (7-18); BUN/Creat Ratio 39.3 RATIO (10-20); Calcium,Total 7.7 mg/dL (8.5-10.1); Chloride 119 mmol/L (98-107); Creatinine, Serum 0.94 mg/dL (0.70-1.30); EST Glomerular Filtration Rate 81 mL/min (>60); Est Glom Filt Rate - Afr Amer 98 mL/min (>60); Globulin 2.7 g/dL (2.2-4.2); Glucose 110 mg/dL (74-106); Potassium 4.2 mmol/L (3.5-5.1); Sodium Level 143 mmol/L (136-145); Thyroid Stim Hormone (TSH) 1.92 uIU/mL (0.358-3.74)
[2022-04-22 05:32] LABS: Lactic Acid 1.4 mmol/L (0.4-1.9)
--- NOTE | 2022-04-22 06:06 | NURSING ---
Straight cathed for 350 ml d/t pt unable to void per orders.
[2022-04-22] MEDS: Menthol/Lanolin/Calamine/Znox 113 GM Tube 1 APPLIC TOPICAL ×3 (06:08→20:52)
--- NOTE | 2022-04-22 10:05 | CASEMGMT ---
REBEKAH VILLEGAS Face to Face with patient for initial transition planning/care coordination assessment. RN BAKARI introduced self and role at [facility]. Patient lying in bed, alert and oriented. Patient willing to participate in assessment and is able to answer all questions appropriately. Care providers, pharmacy, and demographics verified. Patient wishes to discharge home, denies need for home health at this time. Patient states he has no further needs or concerns at this time. CM to follow for discharge planning needs that may arise. PCP: Geri Specialists: [place] urologist Preferred Pharmacy: [facility] Insurance: [facility], [place] Prescription Benefit: yes Living Will/HPOA: yes, Maame Bonilla LNOK: , son Living Arrangements: Patient lives with in a single story home. assists patient with ADLs. Transportation: DME/HHC: Patient has shower chair, raised toilet, lift chair, grab bars, wheelchair, and verna walker. No previous HHC or SNF. Patient attends outpatient therapy in [place]. Disposition Plan: Patient to discharge home with resumption of outpatient therapy, family support, and follow-up plans in place. Danna BARCLAY, RN, CM
[2022-04-22] MEDS: 0.9% Normal Saline 1,000 ML 100 ML IV (10:12)
[2022-04-22] MEDS: Aspirin E.C. 81 MG Tablet PO (10:14)
[2022-04-22] MEDS: levETIRAcetam 500 MG Tablet PO ×2 (10:16→20:51)
[2022-04-22] MEDS: Atorvastatin Calcium 10 MG Tablet PO (10:16)
[2022-04-22] MEDS: Metoprolol Tartrate 25 MG Tablet 12.5 MG PO (10:23)
[2022-04-22] MEDS: Ceftriaxone 1 GM/50 ML BAG IV (10:29)
[2022-04-22 12:51] LABS: Partial Thromboplast Time 36.2 Seconds (24.1-36.2)
[2022-04-22] MEDS: Heparin Injection (Vial) 5,000 UNIT/ML VIAL IV (13:19)
--- NOTE | 2022-04-22 16:37 | PN.HOSP_ITS ---
Subjective Subjective Still having some coughing and shortness of breath, does feel slightly better than yesterday. No other complaints at this time Objective Data Objective Data Vital Signs: Vital Signs Temp Pulse Resp BP Pulse Ox O2 Del Method O2 Flow Rate 97.4 F L 124 H 20 H 125/96 H 100 Room Air 2 04/22/22 16:25 04/22/22 16:25 04/22/22 16:25 04/22/22 16:25 04/22/22 16:25 04/22/22 16:25 04/22/22 12:25 Oxygen Flow Rate (L/min) 2 Oxygen Delivery Method Room Air Weight: 71 kg Body Mass Index (BMI) 21.8 Intake & Output: Intake and Output for Last 24 Hours 04/20/22 04/21/22 04/22/22 23:59 23:59 23:59 Intake Total 3538.34 / 3778.34 2038.84 / 2038.84 Output Total 350 / 350 Balance 3538.34 / 3778.34 1688.84 / 1688.84 Lab / Micro Data Result Diagrams: 04/22/22 04:20 04/22/22 04:20 Labs: Laboratory Results - last 24 hr 04/21/22 21:15: APTT 22.8 L 04/21/22 21:15: Plt Count 202 04/22/22 04:10: APTT 86.8 H 04/22/22 04:20: Lactic Acid 1.4 04/22/22 04:20: WBC 13.0 H, RBC 3.90 L, Hgb 11.1 L, Hct 35.8 L, MCV 91.8, MCH 28.5, MCHC 31.0 L, RDW Std Deviation 47.0 H, RDW Coeff of Kan 14.0, Plt Count 215, MPV 10.2 04/22/22 04:20: Sodium 143, Potassium 4.2, Chloride 119 H, Carbon Dioxide 19.0 L , Anion Gap 5, BUN 37 H, Creatinine 0.94, Estim Creat Clear Calc 59.80, Est GFR (MDRD) Af Amer 98, Est GFR (MDRD) Non-Af 81, BUN/Creatinine Ratio 39.3 H, Glucose 110 H, Calcium 7.7 L, Total Bilirubin 1.90 H, AST 122 H, ALT 151 H, Alkaline Phosphatase 288 H, Total Protein 5.0 L, Albumin 2.3 L, Globulin 2.7, Albumin/Globulin Ratio 0.9, TSH 1.92 04/22/22 12:23: APTT 36.2 Micro: Microbiology 04/21/22 13:25 Urine, Catheterized Urine Culture - Preliminary GNR non network systems engineer GNR non network systems engineer#2 04/21/22 17:36 Mucosa - Nasopharyngeal Respiratory Panel (PCR) - Final 04/21/22 09:00 Nasal Secretion SARS-CoV-2 & FLU Antigen (Rapid) - Final Radiography Diagnostic Testing: Radiology Impression Echocardiogram 04/21/22 15:07 Interpretation Summary Diluted definity 1.5ml given slow IV push to enhance endocardial definition. Moderate concentric left ventricular hypertrophy. The left ventricular ejection fraction is 55 %. The left atrium is severely enlarged. Mild (1+) mitral valve insufficiency. Moderately severe (3+) tricuspid valve insufficiency. Mild pulmonary hypertension. Mild-Moderate (1-2+) aortic valve insufficiency. Mildly dilated aortic root. Ordering Physician: Hillary Danielle Referring Physician: MD Geri En Performed By: Demetria Jaquez RCS Lung Scan-VQ NM 04/21/22 19:56 IMPRESSION: 1. VERY LOW PROBABILITY FOR PULMONARY EMBOLUS (<10%) 99m Tc DTPA aerosol ventilation / 99m Tc MAA pulmonary perfusion imaging examination, according to PIOPED II interpretive criteria with regard given to the presence of > 2 ventilation-perfusion matches without corresponding radiographic changes. (Sotsman et al, Radiology 246: 941, 2008 Socaden et al, J Nucl Med 49: 1741, 2008). 2. Central clumping of the aerosol may be secondary to obstructive airway mechanics and or clinical tachypnea. Electronically Signed: Marco Hansen, at 10:14 EST , Rhythm Strip Rhythm Strip: A-fib Rate: 140 Ectopy: None Physical Exam Const alert Constitutional Narrative: Oriented HEENT normocephalic and head/scalp atraumatic Eyes Eyes Narrative: EOM grossly intact, anicteric Neck supple Resp Resp Narrative: Slight increased work of breathing, no wheezes or she Cardio Cardio Narrative: Slightly tachycardic GI soft to palpation, non-tender and non-distended Extremity Extremity Narrative: No edema appreciated Neuro Neuro Narrative: Paralysis of left lower and upper extremity, no other focal deficits appreciated Psych Psych Narrative: Cooperative Assessment & Plan Assessment/Plan (1) Sepsis: (2) Atrial fibrillation with RVR: PLAN: Plan #Sepsis secondary to urinary tract infection Elevated white count and elevated lactic acid Tachycardic though was in A. fib with RVR, may be in part compensatory tachycardia as well Was started on Rocephin Trend lactic Cultures ordered 04/22: White count improving, lactic acid resolved, however remains somewhat ill-appearing and tachycardic. Urine cultures growing nonfermenting gram- negative rods of 2 species, antibiotics changed to Zosyn. Blood cultures pending #Shortness of breath Appears to have some baseline COPD on CT Has been worsening over months and then significantly worsened today but was found to be in A. fib with RVR, breathing improved with improvement of heart rate D-dimer was elevated, unable to get CTA in ED Does have elevated [id number] or however and would need anticoagulated from an atrial fibrillation standpoint, will start heparin drip without bolus Will get V/Q scan however as he may not be a good candidate for long-term anticoagulant therapy but will need to discuss further with him and his family will wait on v/q scan results 04/22: V/Q scan with very low probability of PE. We will hold heparin drip for now, may need DOAC prior to discharge if family opts for anticoagulation the may be too high risk, will discuss #Liver enzymes Unclear etiology, no baseline Hold statin Will get right upper quadrant ultrasound and trend #A. fib with RVR Improved with Cardizem bolus Will start metoprolol twice daily and uptitrate Echo pending Started on heparin 04/22: We will increase metoprolol today, given very low probability of PE will hold anticoagulation at this time will need to discuss risks and benefits of a longer term anticoagulation prior to discharge, remains on telemetry #History of CVA Aspirin Given starting anticoagulation hold Plavix at this time Continue atorvastatin 04/22: Given Heparin discontinued we will resume Plavix, given elevated liver enzymes holding statin #DVT ppx: Started on heparin Hillary Danielle MD Charges/Coding Visit Charges Inpatient E&M: 64201 Subs Hosp L2
[2022-04-22] MEDS: Metoprolol Tartrate 25 MG Tablet PO (20:50)
[2022-04-22] MEDS: MELATONIN 10 MG TABLET PO (20:51)
[2022-04-22] MEDS: Heparin Injection (Vial) 5,000 UNIT/ML VIAL 5000 UNIT SC (20:56)
[2022-04-23] VITALS (13 sets, daily range): BP systolic 104–152; BP diastolic 79–104; PULSE 102–127; RESP 18–20; TEMP 36.4–36.8; O2SAT 96–99
[2022-04-23] MEDS: 0.9% Saline Lock 10 ML Syringe IV (05:53)
[2022-04-23] MEDS: Menthol/Lanolin/Calamine/Znox 113 GM Tube 1 APPLIC TOPICAL ×3 (05:54→21:27)
[2022-04-23] MEDS: Aspirin E.C. 81 MG Tablet PO (07:57)
[2022-04-23] MEDS: Metoprolol Tartrate 25 MG Tablet PO ×2 (07:57→21:27)
[2022-04-23] MEDS: Clopidogrel Bisulfate 75 MG Tablet PO (07:57)
[2022-04-23] MEDS: levETIRAcetam 500 MG Tablet PO ×2 (07:57→21:26)
[2022-04-23 08:28] LABS: Absolute Lymphocyte Count 0.96 X10^3/uL (0.83-4.51); Absolute Neutrophil Count 6.7 X10^3/uL (2.0-7.7); Basophil# 0.02 X10^3/uL; Basophil% 0.2 % (0-1); Eosinophil# 0.06 X10^3/uL; Eosinophils% 0.7 % (0-5); Hematocrit 35.9 % (40-54); Hemoglobin 11.3 g/dL (13.0-16.5); Lymphocyte # 0.96 X10^3/ul (0.83-4.51); Lymphocyte % 11.6 % (19-41); Mean Corp Hgb Conc 31.5 g/dL (32-36); Mean Corpuscular Hgb 29.4 pg (27.0-32.0); Mean Corpuscular Volume 93.5 fL (80-94); Mean Platelet Vol. 10.8 fl (6.2-12.0); Monocyte# 0.53 X10^3/uL; Monocyte% 6.4 % (0-10); NRBC Flagged by Analyzer 0 % (0-5); Neutrophil # 6.68 X10^3/uL (2.7-7.7); Neutrophil % 80.6 % (47-70); Platelet Count 198 K/mm3 (150-450); RBC Distribution Width CV 14.1 % (11.6-14.6); RBC Distribution Width SD 48.9 fl (35.1-43.9); Red Blood Count 3.84 M/mm3 (4.6-6.2); White Blood Count 8.3 K/mm3 (4.4-11.0)
--- NOTE | 2022-04-23 08:36 | NURSING ---
Emergency Documentation 04/23/2022 0700
[2022-04-23 09:00] LABS: ALB/GLOB Ratio 0.9 RATIO (0.9-2.4); AST(SGOT) 56 U/L (15-37); Alanine Aminotransfer ALT/SGPT 116 U/L (16-61); Albumin, Serum 2.4 g/dL (3.2-5.0); Alkaline Phosphatase 242 U/L (45-117); Anion Gap 7 (5-15); BUN 30 mg/dL (7-18); BUN/Creat Ratio 40.9 RATIO (10-20); Calcium,Total 8.3 mg/dL (8.5-10.1); Chloride 119 mmol/L (98-107); Creatinine, Serum 0.73 mg/dL (0.70-1.30); EST Glomerular Filtration Rate 109 mL/min (>60); Est Glom Filt Rate - Afr Amer 131 mL/min (>60); Estimated Creatinine Clearance 56.21 ml/min; Globulin 2.7 g/dL (2.2-4.2); Glucose 94 mg/dL (74-106); Potassium 3.8 mmol/L (3.5-5.1); Protein, Total 5.1 g/dL (6.4-8.2); Sodium Level 144 mmol/L (136-145)
--- NOTE | 2022-04-23 10:01 | PN.HOSP_ITS ---
Subjective Subjective Continues to have some shortness of breath, denies chest pain, did not endorse any other specific complaints today Objective Data Objective Data Vital Signs: Vital Signs Temp Pulse Resp BP Pulse Ox O2 Del Method O2 Flow Rate 97.6 F L 121 H 20 H 130/89 H 97 Nasal Cannula 2 04/23/22 07:51 04/23/22 07:57 04/23/22 07:51 04/23/22 07:57 04/23/22 09:40 04/23/22 09:40 04/23/22 09:40 Oxygen Flow Rate (L/min) 2 Oxygen Delivery Method Nasal Cannula Weight: 71 kg Body Mass Index (BMI) 21.8 Intake & Output: Intake and Output for Last 24 Hours 04/21/22 04/22/22 04/23/22 23:59 23:59 23:59 Intake Total 3538.34 / 3778.34 3310.97 / 3610.97 300 / 300 Output Total 350 / 600 450 / 450 Balance 3538.34 / 3778.34 2960.97 / 3010.97 -150 / -150 Lab / Micro Data Result Diagrams: 04/23/22 07:31 04/23/22 07:31 Labs: Laboratory Results - last 24 hr 04/22/22 12:23: APTT 36.2 04/23/22 07:31: WBC 8.3, RBC 3.84 L, Hgb 11.3 L, Hct 35.9 L, MCV 93.5, MCH 29.4, MCHC 31.5 L, RDW Std Deviation 48.9 H, RDW Coeff of [place] 14.1, Plt Count 198, MPV 10.8, Immature Gran % (Auto) 0.500, Neut % (Auto) 80.6 H, Lymph % (Auto) 11.6 L, [place] % (Auto) 6.4, Eos % (Auto) 0.7, Baso % (Auto) 0.2, Absolute Neuts (auto) 6.7, Absolute Lymphs (auto) 0.96, Nucleated RBC % 0 04/23/22 07:31: Sodium 144, Potassium 3.8, Chloride 119 H, Carbon Dioxide 18.0 L , Anion Gap 7, BUN 30 H, Creatinine 0.73, Estim Creat Clear Calc 56.21, Est GFR (MDRD) Af Amer 131, Est GFR (MDRD) Non-Af 109, BUN/Creatinine Ratio 40.9 H, Glucose 94, Calcium 8.3 L, Total Bilirubin 0.90, AST 56 H, ALT 116 H, Alkaline Phosphatase 242 H, Total Protein 5.1 L, Albumin 2.4 L, Globulin 2.7, Albumin/Globulin Ratio 0.9 Micro: Microbiology 04/21/22 13:25 Urine, Catheterized Urine Culture - Final Escherichia coli Escherichia coli#2 04/21/22 17:36 Mucosa - Nasopharyngeal Respiratory Panel (PCR) - Final 04/21/22 09:00 Nasal Secretion SARS-CoV-2 & FLU Antigen (Rapid) - Final Radiography Diagnostic Testing: Radiology Impression Echocardiogram 04/21/22 15:07 Interpretation Summary Diluted definity 1.5ml given slow IV push to enhance endocardial definition. Moderate concentric left ventricular hypertrophy. The left ventricular ejection fraction is 55 %. The left atrium is severely enlarged. Mild (1+) mitral valve insufficiency. Moderately severe (3+) tricuspid valve insufficiency. Mild pulmonary hypertension. Mild-Moderate (1-2+) aortic valve insufficiency. Mildly dilated aortic root. Ordering Physician: Hillary Danielle Referring Physician: MD Geri En Performed By: Demetria Jaquez RCS Lung Scan-VQ NM 04/21/22 19:56 IMPRESSION: 1. VERY LOW PROBABILITY FOR PULMONARY EMBOLUS (<10%) 99m Tc DTPA aerosol ventilation / 99m Tc MAA pulmonary perfusion imaging examination, according to PIOPED II interpretive criteria with regard given to the presence of > 2 ventilation-perfusion matches without corresponding radiographic changes. (Sotslucille et al, Radiology 246: 941, 2008 Socaden et al, J Nucl Med 49: 1741, 2008). 2. Central clumping of the aerosol may be secondary to obstructive airway mechanics and or clinical tachypnea. Electronically Signed: Marco Hansen, at 10:14 EST , Rhythm Strip Rhythm Strip: A-fib Rate: 140 Ectopy: None Physical Exam Const alert Constitutional Narrative: Oriented HEENT normocephalic and head/scalp atraumatic Eyes Eyes Narrative: EOM grossly intact, anicteric Neck supple Resp Resp Narrative: Slight increased work of breathing, no wheezes or she Cardio Cardio Narrative: Slightly tachycardic GI soft to palpation, non-tender and non-distended Extremity Extremity Narrative: No edema appreciated Neuro Neuro Narrative: Paralysis of left lower and upper extremity, no other focal deficits appreciated Psych Psych Narrative: Cooperative Assessment & Plan Assessment/Plan (1) Sepsis: (2) Atrial fibrillation with RVR: PLAN: Plan #Sepsis secondary to urinary tract infection Elevated white count and elevated lactic acid Tachycardic though was in A. fib with RVR, may be in part compensatory tachycardia as well Was started on Rocephin Trend lactic Cultures ordered 04/22: White count improving, lactic acid resolved, however remains somewhat ill-appearing and tachycardic. Urine cultures growing nonfermenting gram- negative rods of 2 species, antibiotics changed to Zosyn. Blood cultures pending 04/23: Urine culture growing E. coli, 1 out of 2 resistant to Rocephin, is currently covered by present regimen. Blood cultures pending. WBC count improv ed #Shortness of breath Appears to have some baseline COPD on CT Has been worsening over months and then significantly worsened today but was found to be in A. fib with RVR, breathing improved with improvement of heart rate D-dimer was elevated, unable to get CTA in ED Does have elevated [id number] or however and would need anticoagulated from an atrial fibrillation standpoint, will start heparin drip without bolus Will get V/Q scan however as he may not be a good candidate for long-term anti coagulant therapy but will need to discuss further with him and his family will wait on v/q scan results 04/22: V/Q scan with very low probability of PE. We will hold heparin drip for now, may need DOAC prior to discharge if family opts for anticoagulation the may be too high risk, will discuss #Liver enzymes Unclear etiology, no baseline Hold statin Will get right upper quadrant ultrasound and trend 04/23: Improving, liver ultrasound read pending, possibly secondary to his sepsis #A. fib with RVR Improved with Cardizem bolus Will start metoprolol twice daily and uptitrate Echo pending Started on heparin 04/22: We will increase metoprolol today, given very low probability of PE will hold anticoagulation at this time will need to discuss risks and benefits of a longer term anticoagulation prior to discharge, remains on telemetry #History of CVA Aspirin Given starting anticoagulation hold Plavix at this time Continue atorvastatin 04/22: Given Heparin discontinued we will resume Plavix, given elevated liver enzymes holding statin #DVT ppx: Started on heparin Hillary Danielle MD Charges/Coding Visit Charges Inpatient E&M: 17268 Subs Hosp L2
[2022-04-23] MEDS: Heparin Injection (Vial) 5,000 UNIT/ML VIAL 5000 UNIT SC ×2 (10:38→21:27)
--- NOTE | 2022-04-23 17:51 | US_ITS ---
INDICATION: elevated liver enzymes and bili EXAMINATION: Ultrasound right upper quadrant TECHNIQUE: Fuller scale imaging with graded compression and color doppler was obtained of the right upper quadrant. COMPARISON: CT chest without contrast from yesterday. FINDINGS: Liver: The liver measures 16.5 cm in length and is within normal limits. Mildly increased parenchymal echogenicity compatible with diffuse fatty infiltration. No parenchymal masses. Normal hepatopedal flow. No intrahepatic bile duct dilation. Gallbladder: Cholecystectomy. The common bile duct measures 3 mm and is within normal limits. Right kidney: 10.5 x 5.5 x 5.2 cm. Normal size. Cortex measures 1.3 cm in thickness. Normal parenchymal echogenicity. No masses. No nephrolithiasis or hydronephrosis. Pancreas: Obscured by overlying bowel gas and not visualized. Free fluid: Trace perihepatic ascites. US/Liver IMPRESSION: 1. Trace perihepatic ascites. 2. Diffuse hepatic steatosis. No hepatic masses. 3. Otherwise, no acute findings. Electronically Signed: Michael Jarvis, at 10:37 EST ,
--- NOTE | 2022-04-23 19:00 | PCA ---
EMERGENCY DOCUMENTATION
[2022-04-23] MEDS: MELATONIN 10 MG TABLET PO (21:26)
[2022-04-24] VITALS (15 sets, daily range): BP systolic 132–172; BP diastolic 66–95; PULSE 77–136; RESP 18–20; TEMP 36.4–36.7; O2SAT 93–100
[2022-04-24] MEDS: Metoprolol Tartrate 25 MG Tablet PO ×2 (03:36→09:32)
[2022-04-24] MEDS: 0.9% Saline Lock 10 ML Syringe IV ×5 (05:05→22:01)
[2022-04-24 07:25] LABS: Absolute Lymphocyte Count 1.07 X10^3/uL (0.83-4.51); Absolute Neutrophil Count 6.1 X10^3/uL (2.0-7.7); Basophil# 0.03 X10^3/uL; Basophil% 0.4 % (0-1); Eosinophils% 1.3 % (0-5); Hematocrit 35.5 % (40-54); Hemoglobin 11.5 g/dL (13.0-16.5); Lymphocyte # 1.07 X10^3/ul (0.83-4.51); Lymphocyte % 13.6 % (19-41); Mean Corp Hgb Conc 32.4 g/dL (32-36); Mean Corpuscular Volume 89.4 fL (80-94); Mean Platelet Vol. 10.9 fl (6.2-12.0); Monocyte% 6.4 % (0-10); NRBC Flagged by Analyzer 0 % (0-5); Neutrophil # 6.12 X10^3/uL (2.7-7.7); Neutrophil % 77.8 % (47-70); Platelet Count 196 K/mm3 (150-450); RBC Distribution Width CV 13.7 % (11.6-14.6); RBC Distribution Width SD 44.9 fl (35.1-43.9); Red Blood Count 3.97 M/mm3 (4.6-6.2); White Blood Count 7.9 K/mm3 (4.4-11.0)
[2022-04-24 07:56] LABS: ALB/GLOB Ratio 0.8 RATIO (0.9-2.4); AST(SGOT) 35 U/L (15-37); Alanine Aminotransfer ALT/SGPT 88 U/L (16-61); Albumin, Serum 2.5 g/dL (3.2-5.0); Alkaline Phosphatase 237 U/L (45-117); Anion Gap 7 (5-15); BUN 24 mg/dL (7-18); BUN/Creat Ratio 35.7 RATIO (10-20); Calcium,Total 8.3 mg/dL (8.5-10.1); Chloride 117 mmol/L (98-107); Creatinine, Serum 0.67 mg/dL (0.70-1.30); EST Glomerular Filtration Rate 120 mL/min (>60); Est Glom Filt Rate - Afr Amer 145 mL/min (>60); Estimated Creatinine Clearance 56.21 ml/min; Glucose 90 mg/dL (74-106); Potassium 3.6 mmol/L (3.5-5.1); Protein, Total 5.5 g/dL (6.4-8.2); Sodium Level 143 mmol/L (136-145)
[2022-04-24] MEDS: levETIRAcetam 500 MG Tablet PO ×2 (09:33→22:02)
[2022-04-24] MEDS: Aspirin E.C. 81 MG Tablet PO (09:33)
[2022-04-24] MEDS: Heparin Injection (Vial) 5,000 UNIT/ML VIAL 5000 UNIT SC ×2 (09:33→22:02)
[2022-04-24] MEDS: Clopidogrel Bisulfate 75 MG Tablet PO (09:33)
[2022-04-24] MEDS: Metoprolol Tartrate 5 MG/5 ML Vial IV (12:18)
--- NOTE | 2022-04-24 12:44 | RAD_ITS ---
STUDY: X-RAY CHEST REASON FOR EXAM: Male, 81 years old. Shortness of breath. TECHNIQUE: Single frontal view of the chest. COMPARISON: April 21, 2022. FINDINGS: Low volume inspiration with interval development of diffuse interstitial pattern, left slightly greater than right. Small bilateral effusions. Stable cardiomegaly. Normal mediastinum and minesh. Normal visualized pulmonary arteries. Aortic tortuosity unchanged. Normal visualized thoracic spine. Normal visualized ribs, clavicles, and shoulders. There is no demonstrated abnormality of the visualized soft tissue structures of the upper abdomen. RAD/Chest 1 View (Portable) IMPRESSION: Cardiomegaly with interval development of findings compatible with mild interstitial edema/congestive failure. Follow up chest imaging to resolution recommended. No emergent finding. Electronically Signed: Jose A Barrera, at 14:52 EST ,
[2022-04-24] MEDS: Menthol/Lanolin/Calamine/Znox 113 GM Tube 1 APPLIC TOPICAL ×2 (13:28→22:02)
[2022-04-24 13:56] LABS: Anion Gap 7 (5-15); BUN 21 mg/dL (7-18); BUN/Creat Ratio 26.9 RATIO (10-20); Calcium,Total 8.4 mg/dL (8.5-10.1); Chloride 117 mmol/L (98-107); Creatinine, Serum 0.78 mg/dL (0.70-1.30); EST Glomerular Filtration Rate 101 mL/min (>60); Est Glom Filt Rate - Afr Amer 122 mL/min (>60); Estimated Creatinine Clearance 56.21 ml/min; Glucose 95 mg/dL (74-106); Potassium 3.8 mmol/L (3.5-5.1); Sodium Level 143 mmol/L (136-145)
[2022-04-24 14:05] LABS: Lactic Acid 2.1 mmol/L (0.4-1.9)
--- NOTE | 2022-04-24 14:12 | PCM.PN.HOSP ---
Subjective Subjective Still intermittent short of breath, this seems to be worse when heart rate increases. Denied other complaints this time Objective Data Objective Data Vital Signs: Vital Signs Temp Pulse Resp BP Pulse Ox O2 Del Method O2 Flow Rate 97.5 F L 116 H 18 154/95 H 99 Nasal Cannula 2 04/24/22 09:30 04/24/22 12:18 04/24/22 09:30 04/24/22 12:18 04/24/22 09:30 04/24/22 13:29 04/24/22 13:29 Oxygen Flow Rate (L/min) 2 Oxygen Delivery Method Nasal Cannula Weight: 71 kg Body Mass Index (BMI) 21.8 Intake & Output: Intake and Output for Last 24 Hours 04/22/22 04/23/22 04/24/22 23:59 23:59 23:59 Intake Total 3310.97 / 3610.97 920 / 920 220 / 220 Output Total 350 / 600 1271 / 1271 425 / 425 Balance 2960.97 / 3010.97 -351 / -351 -205 / -205 Lab / Micro Data Result Diagrams: 04/24/22 06:20 04/24/22 13:18 Labs: Laboratory Results - last 24 hr 04/24/22 06:20: WBC 7.9, RBC 3.97 L, Hgb 11.5 L, Hct 35.5 L, MCV 89.4, MCH 29.0, MCHC 32.4, RDW Std Deviation 44.9 H, RDW Coeff of [place] 13.7, Plt Count 196, MPV 10.9, Immature Gran % (Auto) 0.500, Neut % (Auto) 77.8 H, Lymph % (Auto) 13.6 L, [place] % (Auto) 6.4, Eos % (Auto) 1.3, Baso % (Auto) 0.4, Absolute Neuts (auto) 6.1, Absolute Lymphs (auto) 1.07, Nucleated RBC % 0 04/24/22 06:20: Sodium 143, Potassium 3.6, Chloride 117 H, Carbon Dioxide 19.0 L, Anion Gap 7, BUN 24 H, Creatinine 0.67 L, Estim Creat Clear Calc 56.21, Est GFR (MDRD) Af Amer 145, Est GFR (MDRD) Non-Af 120, BUN/Creatinine Ratio 35.7 H, Glucose 90, Calcium 8.3 L, Total Bilirubin 1.20 H, AST 35, ALT 88 H, Alkaline Phosphatase 237 H, Total Protein 5.5 L, Albumin 2.5 L, Globulin 3.0, Albumin/Globulin Ratio 0.8 L 04/24/22 13:18: Sodium 143, Potassium 3.8, Chloride 117 H, Carbon Dioxide 19.0 L, Anion Gap 7, BUN 21 H, Creatinine 0.78, Estim Creat Clear Calc 56.21, Est GFR (MDRD) Af Amer 122, Est GFR (MDRD) Non-Af 101, BUN/Creatinine Ratio 26.9 H, Glucose 95, Calcium 8.4 L 04/24/22 13:18: Lactic Acid 2.1 H* Micro: Microbiology 04/22/22 12:23 Blood Culture (Wb) - Right Wrist Blood Culture - Preliminary No growth in 48 hours. 04/22/22 04:10 Blood Culture (Wb) - Arm Left Blood Culture - Preliminary No growth in 48 hours. 04/21/22 13:25 Urine, Catheterized Urine Culture - Final Escherichia coli Escherichia coli#2 04/21/22 17:36 Mucosa - Nasopharyngeal Respiratory Panel (PCR) - Final 04/21/22 09:00 Nasal Secretion SARS-CoV-2 & FLU Antigen (Rapid) - Final Rhythm Strip Rhythm Strip: A-fib Rate: 140 Ectopy: None Physical Exam Const alert Constitutional Narrative: Oriented HEENT normocephalic and head/scalp atraumatic Eyes Eyes Narrative: EOM grossly intact, anicteric Neck supple Resp Resp Narrative: Slight increased work of breathing, somewhat diminished at the bases Cardio Cardio Narrative: Slightly tachycardic GI soft to palpation, non-tender and non-distended Extremity Extremity Narrative: No edema appreciated Neuro Neuro Narrative: Paralysis of left lower and upper extremity, no other focal deficits appreciated Psych Psych Narrative: Cooperative Assessment & Plan Assessment/Plan (1) Sepsis: (2) Atrial fibrillation with RVR: PLAN: Plan #Shortness of breath Appears to have some baseline COPD on CT Has been worsening over months and then significantly worsened today but was found to be in A. fib with RVR, breathing improved with improvement of heart rate D-dimer was elevated, unable to get CTA in ED Does have elevated [id number] or however and would need anticoagulated from an atrial fibrillation standpoint, will start heparin drip without bolus Will get V/Q scan however as he may not be a good candidate for long-term anticoagulant therapy but will need to discuss further with him and his family will wait on v/q scan results 04/22: V/Q scan with very low probability of PE. We will hold heparin drip for now, may need DOAC prior to discharge if family opts for anticoagulation the may be too high risk, will discuss 04/24: Seems somewhat more short of breath today, chest x-ray obtained and shows findings compatible with interstitial edema, likely due to his fluid resuscitation. Dose of Lasix given. Additionally his heart rate has been increased which is likely contributing. Metoprolol has not been improving his heart rate, will give a push of diltiazem and increase metoprolol nightly. Did have slightly elevated lactic acid but given fluid overload and elevated heart rate suspect this is due to some decreased perfusion from suboptimal cardiac output due to decrease feeling times. We will give another dose of Lasix, heart rate improving with diltiazem and increased dose of metoprolol tonight ordered. Reflex lactic ordered #Sepsis secondary to urinary tract infection Elevated white count and elevated lactic acid Tachycardic though was in A. fib with RVR, may be in part compensatory tachycardia as well Was started on Rocephin Trend lactic Cultures ordered 04/22: White count improving, lactic acid resolved, however remains somewhat ill-appearing and tachycardic. Urine cultures growing nonfermenting gram-negative rods of 2 species, antibiotics changed to Zosyn. Blood cultures pending 04/23: Urine culture growing E. coli, 1 out of 2 resistant to Rocephin, is currently covered by present regimen. Blood cultures pending. WBC count improved #Liver enzymes Unclear etiology, no baseline Hold statin Will get right upper quadrant ultrasound and trend 04/23: Improving, liver ultrasound read pending, possibly secondary to his sepsis #A. fib with RVR Improved with Cardizem bolus Will start metoprolol twice daily and uptitrate Echo pending Started on heparin 04/22: We will increase metoprolol today, given very low probability of PE will hold anticoagulation at this time will need to discuss risks and benefits of a longer term anticoagulation prior to discharge, remains on telemetry 04/24: See #1 #History of CVA Aspirin Given starting anticoagulation hold Plavix at this time Continue atorvastatin 04/22: Given Heparin discontinued we will resume Plavix, given elevated liver enzymes holding statin #DVT ppx: Started on heparin Hillary Danielle MD Charges/Coding Visit Charges Inpatient E&M: 28280 Subs Hosp L2
[2022-04-24] MEDS: Ipratropium/Albuterol Sulfate 3 ML AMPUL.NEB INHALATION (14:22)
[2022-04-24] MEDS: Polyethylene Glycol 3350 17 GM PACKET 34 GM PO (14:49)
[2022-04-24] MEDS: Furosemide 20 MG/2 ML VIAL IV (14:50)
[2022-04-24 15:05] LABS: Blood Gas Specimen Type VEN; O2 Delivery Device Cannula; VBG BASE EXCESS -8 mmol/L (-1.0-3.5); VBG Bicarbonate 19 mmol/L (22-26); VBG PO2 61 mmHg (25-40); VBG SO2 89 % (50-70); VBG TCO2 20 mmol/L (23-33); VBG pCO2 37.6 mmHg (41-51)
[2022-04-24] MEDS: dilTIAZem 25 MG/5 ML Vial 10 MG IV BOLUS (17:21)
[2022-04-24 17:26] LABS: Reflex Lactate? Y
[2022-04-24 18:42] LABS: Lactic Acid 2.6 mmol/L (0.4-1.9)
[2022-04-24] MEDS: Furosemide 20 MG/2 ML VIAL 10 MG IV (22:01)
[2022-04-24] MEDS: Metoprolol Tartrate 25 MG Tablet 50 MG PO (22:02)
[2022-04-24] MEDS: Acetaminophen 325 MG Tablet 650 MG PO (22:03)
[2022-04-24] MEDS: MELATONIN 10 MG TABLET PO (22:03)
[2022-04-25] VITALS (9 sets, daily range): BP systolic 124–130; BP diastolic 79–87; PULSE 81–131; RESP 18–20; TEMP 36.2–36.7; O2SAT 97–99
[2022-04-25] MEDS: Menthol/Lanolin/Calamine/Znox 113 GM Tube 1 APPLIC TOPICAL ×2 (05:39→13:42)
[2022-04-25 07:09] LABS: Absolute Lymphocyte Count 1.12 X10^3/uL (0.83-4.51); Absolute Neutrophil Count 5.5 X10^3/uL (2.0-7.7); Basophil# 0.03 X10^3/uL; Basophil% 0.4 % (0-1); Eosinophil# 0.12 X10^3/uL; Eosinophils% 1.6 % (0-5); Hematocrit 35.7 % (40-54); Hemoglobin 11.5 g/dL (13.0-16.5); Lymphocyte # 1.12 X10^3/ul (0.83-4.51); Mean Corp Hgb Conc 32.2 g/dL (32-36); Mean Corpuscular Hgb 28.8 pg (27.0-32.0); Mean Corpuscular Volume 89.3 fL (80-94); Mean Platelet Vol. 11.1 fl (6.2-12.0); Monocyte# 0.66 X10^3/uL; Monocyte% 8.8 % (0-10); NRBC Flagged by Analyzer 0 % (0-5); Neutrophil # 5.48 X10^3/uL (2.7-7.7); Neutrophil % 73.5 % (47-70); Platelet Count 179 K/mm3 (150-450); RBC Distribution Width CV 13.7 % (11.6-14.6); RBC Distribution Width SD 44.5 fl (35.1-43.9); White Blood Count 7.5 K/mm3 (4.4-11.0)
[2022-04-25] MEDS: Metoprolol Tartrate 25 MG Tablet 50 MG PO (07:13)
--- NOTE | 2022-04-25 07:14 | NURSING ---
pt noted with HR 110-140 a fib, Dr emmanuel updated, may give metoprolol dose early.
[2022-04-25 07:38] LABS: ALB/GLOB Ratio 0.8 RATIO (0.9-2.4); AST(SGOT) 19 U/L (15-37); Alanine Aminotransfer ALT/SGPT 68 U/L (16-61); Albumin, Serum 2.4 g/dL (3.2-5.0); Alkaline Phosphatase 211 U/L (45-117); Anion Gap 8 (5-15); BUN 20 mg/dL (7-18); BUN/Creat Ratio 23.8 RATIO (10-20); Calcium,Total 8.3 mg/dL (8.5-10.1); Chloride 115 mmol/L (98-107); Creatinine, Serum 0.84 mg/dL (0.70-1.30); EST Glomerular Filtration Rate 92 mL/min (>60); Est Glom Filt Rate - Afr Amer 112 mL/min (>60); Estimated Creatinine Clearance 66.91 ml/min; Globulin 3.1 g/dL (2.2-4.2); Glucose 89 mg/dL (74-106); Potassium 3.7 mmol/L (3.5-5.1); Protein, Total 5.5 g/dL (6.4-8.2); Sodium Level 145 mmol/L (136-145)
--- NOTE | 2022-04-25 09:35 | RAD_ITS ---
INDICATION: SOB EXAMINATION/TECHNIQUE: X-RAY - XR Chest 1 View COMPARISON: Yesterday FINDINGS: Support devices: None. Assessment somewhat limited by low lung volumes. Similar appearance of bilateral pulmonary vascular congestion. No sizable pleural effusion or pneumothorax. Heart size is stable. Bones and soft tissues are unchanged. RAD/Chest 1 View (Portable) IMPRESSION: No significant interval change. Electronically Signed: Michael Jarvis, at 10:41 EST ,
[2022-04-25] MEDS: levETIRAcetam 500 MG Tablet PO (10:02)
[2022-04-25] MEDS: Polyethylene Glycol 3350 17 GM PACKET 34 GM PO (10:02)
[2022-04-25] MEDS: Clopidogrel Bisulfate 75 MG Tablet PO (10:03)
[2022-04-25] MEDS: Aspirin E.C. 81 MG Tablet PO (10:03)
[2022-04-25] MEDS: Heparin Injection (Vial) 5,000 UNIT/ML VIAL 5000 UNIT SC (10:03)
[2022-04-25 10:22] LABS: Lactic Acid 1.5 mmol/L (0.4-1.9)
[2022-04-25] MEDS: Furosemide 20 MG Tablet PO (11:02)
[2022-04-25 11:50] LABS: Blood Gas Specimen Type VEN; VBG BASE EXCESS -5 mmol/L (-1.0-3.5); VBG Bicarbonate 21 mmol/L (22-26); VBG PO2 44 mmHg (25-40); VBG SO2 79 % (50-70); VBG TCO2 22 mmol/L (23-33); VBG pCO2 35.1 mmHg (41-51); VBG pH 7.38 (7.32-7.42)
--- NOTE | 2022-04-25 16:14 | PCM.DC ---
Discharge Instructions Diet Discharge Diet: No restrictions Activity Discharge Activity: Return to Normal Activity Follow Up Care Test Results: Test results from this visit will be discussed in further detail at your follow-up appointment, if applicable. Discharge Plan Admission Admit Date/Time: 04/21/22 14:58 Primary Reason for Your Visit: Shortness of breath Attending Provider: Hillary Danielle Primary Care Provider: En Nevarez Instructions Additional Instructions / Restrictions: *Please take this with you to your next doctors appointment* ?You were admitted with a urinary tract infection and you were placed on antibiotics, you will take Augmentin 875 mg twice daily for another 7 days ?Your propranolol has been changed to metoprolol, you will take 50 mg twice daily. This will likely need adjusted by your primary care physician over time and it will be importantly follow-up with him upon discharge. Please discontinue your propranolol and only take metoprolol ?You do have an abnormal heart rhythm, atrial fibrillation, as you have been told before. Please discuss the risks and benefits of anticoagulation/blood thinner with your primary care physician at your hospital follow-up appointment. At this time you can continue taking your aspirin and plavix ?You will be given a small dose of a water pill to take daily on an outpatient basis, 20 mg in the morning. ?Since you will be taking a daily water pill it is advised that you continue to take your potassium at home however would take this as 20 mill equivalents once daily ? Given the Lasix medicine, advised checking blood work (BMP) early next week to monitor kidney function and potassium. Please contact your primary care physician's office upon discharge to obtain order for lab work ? Please weigh yourself daily, if you gain more than 2 pounds please contact your primary care physician ? You were noted to have a leaky valve in your heart, the tricuspid valve, please discuss this with your primary care physician and would advise to keep your appointment to establish with a vending service technician ? He had a slight elevation in your liver enzymes and an ultrasound showed a slight amount of fatty liver but your liver function improved during your stay. Would advise to follow with your primary care physician for any further monitoring -Please call your primary care provider's office upon discharge to schedule a hospital follow up within 1 week. -For any concerning signs or symptoms please call 911 or proceed to the nearest emergency department Discharge Orders/Prescriptions Prescriptions: New metoprolol tartrate 50 mg Tablet 50 mg PO BID 30 Days Qty: 60 0RF furosemide [Lasix] 20 mg tablet 20 mg PO DAILY Qty: 30 0RF amoxicillin-pot clavulanate 875-125 mg tablet 1 tab PO BID 7 Days Qty: 14 0RF Continued amlodipine 2.5 mg tablet 2.5 mg PO DAILY clopidogrel 75 mg tablet 75 mg PO DAILY lisinopril 10 mg tablet 10 mg PO DAILY finasteride 5 mg tablet 5 mg PO DAILY Label Comments: TAKE 1 TABLET BY MOUTH EVERY DAY atorvastatin 10 mg tablet 10 mg PO DAILY Label Comments: TAKE 1 TABLET BY MOUTH EVERY DAY levetiracetam 500 mg tablet 500 mg PO BID Label Comments: TAKE 1 TABLET BY MOUTH TWICE DAILY FOR 90 DAYS aspirin 81 mg Tablet,Delayed Release (Dr/Ec) 81 mg PO DAILY Changed potassium chloride [Klor-Con M20] 20 mEq tablet,ER particles/crystals 20 meq PO DAILY Qty: 30 0RF Discontinued propranolol 160 mg capsule,extended release 24 hr 160 mg PO DAILY Referrals / Follow Up: En Nevarez MD [Primary Care Provider] - Within 1 Week Armani Cedillo MD [Non-Staff] - Disposition Disposition (needs filled in before D/C Order can be placed): Home, Self Care
--- NOTE | 2022-04-25 16:32 | PCM.DC.SUM ---
Providers Date of Admission: 04/21/22 Date of Discharge: 04/25/22 Primary Care Physician: Dr. En Nevarez MD Reason For Visit: SEPSIS 2/ UIT Diagnosis Discharge Diagnosis (1) Sepsis: Status: Acute Code(s): A41.9 - Sepsis, unspecified organism (2) Atrial fibrillation with RVR: Status: Acute Code(s): I48.91 - Unspecified atrial fibrillation Plan #Shortness of breath #Sepsis secondary to urinary tract infection #Liver enzymes #A. fib with RVR #History of CVA Medications at Discharge Home Medications amlodipine 2.5 mg tablet 2.5 mg PO DAILY blood pressure 04/21/22 aspirin 81 mg tablet,delayed release 81 mg PO DAILY heart health 04/21/22 atorvastatin 10 mg tablet 10 mg PO DAILY cholesterol 04/21/22 clopidogrel 75 mg tablet 75 mg PO DAILY anti platelet 04/21/22 finasteride 5 mg tablet 5 mg PO DAILY prostate 04/21/22 levetiracetam 500 mg tablet 500 mg PO BID seizures 04/21/22 lisinopril 10 mg tablet 10 mg PO DAILY blood pressure 04/21/22 amoxicillin 875 mg-potassium clavulanate 125 mg tablet 1 tab PO BID 7 days #14 tabs 04/25/22 furosemide 20 mg tablet (Lasix) 20 mg PO DAILY #30 tabs 04/25/22 metoprolol tartrate 50 mg tablet 50 mg PO BID 30 days #60 tabs 04/25/22 potassium chloride 20 mEq tablet,extended release(part/cryst) (Klor-Con M) 20 meq PO DAILY supplement #30 tabs 04/25/22 Hospital Course Procedures 2-D Echocardiogram and - (V/Q scan) Summary of Care Provided Minutes Spent on Discharge: 35 Hospital Course: RUSS ELDRIDGE, is a 81 M with history of atrial fibrillation not on anticoagulation given, 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 fib with RVR and possibly to have a urinary tract infection.? He was given IV Cardizem and heart rate improved and his respiratory status improved after that as well though he had continued shortness of breath.? Did have an elevated D-dimer of unclear significance, CTA was not obtained due to inability to get further access.? Was not hypoxic and heart rate improved but given elevated lactic acid with UA suggestive of UTI elevated white blood cell count hospitalist contacted for admission. He was started on heparin drip for possible PE as well as his A. fib, he was started on Rocephin and VQ scan was ordered which showed low probability of PE so heparin drip was discontinued as more in-depth discussion about anticoagulation needed to be had if it was only for atrial fibrillation. During his admission he was found to have a UTI with 2 different strains of E. coli and antibiotics were changed to Zosyn as they were both susceptible to this, metoprolol was added and uptitrated for heart rate. Shortness of breath improved initially however day before discharge did get somewhat worse and his lactic acid increased, chest x-ray showed evidence of fluid overload and he was given Lasix with improvement. He did have elevated LFTs and right upper quadrant obtained which showed hepatic steatosis, LFTs down trended without any intervention and suspect that this was secondary to his sepsis. 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 He is instructed to follow-up outpatient with cardiology for monitoring of his valve. On the day of discharge his shortness of breath was significantly improved, heart rate in low 100s with medications. No chest pain, no cough. Given poor functional status at baseline and rapid worsening of stiffness and weakness it is reasonable to discharge with close outpatient follow-up for further adjustments if needed. Instructions provided for patient as below: ?You were admitted with a urinary tract infection and you were placed on antibiotics, you will take Augmentin 875 mg twice daily for another 7 days ?Your propranolol has been changed to metoprolol, you will take 50 mg twice daily.? This will likely need adjusted by your primary care physician over time and it will be importantly follow-up with him upon discharge.? Please discontinue your propranolol and only take metoprolol ?You do have an abnormal heart rhythm, atrial fibrillation, as you have been told before.? Please discuss the risks and benefits of anticoagulation/blood thinner with your primary care physician at your hospital follow-up appointment.? At this time you can continue taking your aspirin and plavix ?You will be given a small dose of a water pill to take daily on an outpatient basis, 20 mg in the morning. ?Since you will be taking a daily water pill it is advised that you continue to take your potassium at home however would take this as 20 mill equivalents once daily ? Given the Lasix medicine, advised checking blood work (BMP) early next week to monitor kidney function and potassium.? Please contact your primary care physician's office upon discharge to obtain order for lab work ? Please weigh yourself daily, if you gain more than 2 pounds please contact your primary care physician ? You were noted to have a leaky valve in your heart, the tricuspid valve, please discuss this with your primary care physician and would advise to keep your appointment to establish with a hack saw operator ? He had a slight elevation in your liver enzymes and an ultrasound showed a slight amount of fatty liver but your liver function improved during your stay.? Would advise to follow with your primary care physician for any further monitoring -Please call your primary care provider's office upon discharge to schedule a hospital follow up within 1 week. -For any concerning signs or symptoms please call 911 or proceed to the nearest emergency department Physical Exam Const alert Constitutional Narrative: Oriented HEENT normocephalic and head/scalp atraumatic Eyes Eyes Narrative: EOM grossly intact, anicteric Neck supple Resp Resp Narrative: Improved aeration Cardio Cardio Narrative: Slightly tachycardic GI soft to palpation, non-tender and non-distended Extremity Extremity Narrative: No edema appreciated Neuro Neuro Narrative: Paralysis of left lower and upper extremity, no other focal deficits appreciated Psych Psych Narrative: Cooperative Weight / BMI Weight Weight: 71 kg Body Mass Index (BMI) 21.8 ABG / Lab / Microbiology Data Result Diagrams: 04/25/22 06:35 04/25/22 06:35 Laboratory: Laboratory Results - last 24 hr 04/24/22 17:53: Lactic Acid 2.6 H* 04/25/22 06:35: WBC 7.5, RBC 4.00 L, Hgb 11.5 L, Hct 35.7 L, MCV 89.3, MCH 28.8, MCHC 32.2, RDW Std Deviation 44.5 H, RDW Coeff of [place] 13.7, Plt Count 179, MPV 11.1, Immature Gran % (Auto) 0.700, Neut % (Auto) 73.5 H, Lymph % (Auto) 15.0 L, [place] % (Auto) 8.8, Eos % (Auto) 1.6, Baso % (Auto) 0.4, Absolute Neuts (auto) 5.5, Absolute Lymphs (auto) 1.12, Nucleated RBC % 0 04/25/22 06:35: Sodium 145, Potassium 3.7, Chloride 115 H, Carbon Dioxide 22.0, Anion Gap 8, BUN 20 H, Creatinine 0.84, Estim Creat Clear Calc 66.91, Est GFR (MDRD) Af Amer 112, Est GFR (MDRD) Non-Af 92, BUN/Creatinine Ratio 23.8 H, Glucose 89, Calcium 8.3 L, Total Bilirubin 1.00, AST 19, ALT 68 H, Alkaline Phosphatase 211 H, Total Protein 5.5 L, Albumin 2.4 L, Globulin 3.1, Albumin/Globulin Ratio 0.8 L 04/25/22 09:41: Lactic Acid 1.5 Microbiology: Microbiology 04/24/22 03:45 Urine, Clean Catch Urine Culture - Preliminary Culture exhibits no growth. 04/22/22 12:23 Blood Culture (Wb) - Right Wrist Blood Culture - Preliminary No growth in 48 hours. 04/22/22 04:10 Blood Culture (Wb) - Arm Left Blood Culture - Preliminary No growth in 48 hours. 04/21/22 13:25 Urine, Catheterized Urine Culture - Final Escherichia coli Escherichia coli#2 04/21/22 17:36 Mucosa - Nasopharyngeal Respiratory Panel (PCR) - Final 04/21/22 09:00 Nasal Secretion SARS-CoV-2 & FLU Antigen (Rapid) - Final ABG: ABG 04/25/22 11:43 Specimen Type CHRISTIANNE VBG pH 7.38 VBG pO2 44 H VBG HCO3 21 L VBG Total CO2 22 L VBG O2 Sat (Calc) 79 H VBG Base Excess -5 L POC Mix VBG pCO2 Pt Tmp 35.1 L Liter Flow 2.0 Radiography Diagnostic Testing: Radiology Impression Chest X-Ray 04/25/22 09:35 IMPRESSION: No significant interval change. Electronically Signed: Michael Matheus, at 10:41 EST , D/C Instructions Discharge Diet: No restrictions Meaningful Use Info Meaningful Use Diagnoses (Choose all that apply): None applicable Discharge Plan Admission Admit Date/Time: 04/21/22 14:58 Primary Reason for Your Visit: Shortness of breath Attending Provider: Hillary Danielle Primary Care Provider: En Nevarez Instructions Patient Instructions: Conrad Balderas Additional Instructions / Restrictions: *Please take this with you to your next doctors appointment* ?You were admitted with a urinary tract infection and you were placed on antibiotics, you will take Augmentin 875 mg twice daily for another 7 days ?Your propranolol has been changed to metoprolol, you will take 50 mg twice daily. This will likely need adjusted by your primary care physician over time and it will be importantly follow-up with him upon discharge. Please discontinue your propranolol and only take metoprolol ?You do have an abnormal heart rhythm, atrial fibrillation, as you have been told before. Please discuss the risks and benefits of anticoagulation/blood thinner with your primary care physician at your hospital follow-up appointment. At this time you can continue taking your aspirin and plavix ?You will be given a small dose of a water pill to take daily on an outpatient basis, 20 mg in the morning. ?Since you will be taking a daily water pill it is advised that you continue to take your potassium at home however would take this as 20 mill equivalents once daily ? Given the Lasix medicine, advised checking blood work (BMP) early next week to monitor kidney function and potassium. Please contact your primary care physician's office upon discharge to obtain order for lab work ? Please weigh yourself daily, if you gain more than 2 pounds please contact your primary care physician ? You were noted to have a leaky valve in your heart, the tricuspid valve, please discuss this with your primary care physician and would advise to keep your appointment to establish with a hack saw operator ? He had a slight elevation in your liver enzymes and an ultrasound showed a slight amount of fatty liver but your liver function improved during your stay. Would advise to follow with your primary care physician for any further monitoring -Please call your primary care provider's office upon discharge to schedule a hospital follow up within 1 week. -For any concerning signs or symptoms please call 911 or proceed to the nearest emergency department Discharge Orders/Prescriptions Prescriptions: New metoprolol tartrate 50 mg Tablet 50 mg PO BID 30 Days Qty: 60 0RF furosemide [Lasix] 20 mg tablet 20 mg PO DAILY Qty: 30 0RF amoxicillin-pot clavulanate 875-125 mg tablet 1 tab PO BID 7 Days Qty: 14 0RF Continued amlodipine 2.5 mg tablet 2.5 mg PO DAILY clopidogrel 75 mg tablet 75 mg PO DAILY lisinopril 10 mg tablet 10 mg PO DAILY finasteride 5 mg tablet 5 mg PO DAILY Label Comments: TAKE 1 TABLET BY MOUTH EVERY DAY atorvastatin 10 mg tablet 10 mg PO DAILY Label Comments: TAKE 1 TABLET BY MOUTH EVERY DAY levetiracetam 500 mg tablet 500 mg PO BID Label Comments: TAKE 1 TABLET BY MOUTH TWICE DAILY FOR 90 DAYS aspirin 81 mg Tablet,Delayed Release (Dr/Ec) 81 mg PO DAILY Changed potassium chloride [Klor-Con M20] 20 mEq tablet,ER particles/crystals 20 meq PO DAILY Qty: 30 0RF Discontinued propranolol 160 mg capsule,extended release 24 hr 160 mg PO DAILY Referrals / Follow Up: En Nevarez MD [Primary Care Provider] - Within 1 Week Armani Cedillo MD [Non-Staff] - Disposition Disposition (needs filled in before D/C Order can be placed): Home, Self Care Charges/Coding Visit Charges Inpatient E&M: 52951 Disch Hosp
== END 2022-04-25 17:30 | disposition home or self-care (01) | DRG 872 ==
LOC: ED 14:20 → PCU 16:10
PROVIDERS: Admitting Provider Internal Medicine; Emergency Provider Emergency Medicine; PCP Family Medicine; Visit Provider Internal Medicine
DX: A41.9 Sepsis, unspecified organism (principal); I69.354 Hemiplegia and hemiparesis following cerebral infarction affecting left non-dominant side; N39.0 Urinary tract infection, site not specified; K76.0 Fatty (change of) liver, not elsewhere classified; I48.91 Unspecified atrial fibrillation; J44.9 Chronic obstructive pulmonary disease, unspecified; E87.70 Fluid overload, unspecified; I07.1 Rheumatic tricuspid insufficiency; B96.20 Unspecified Escherichia coli [E. coli] as the cause of diseases classified elsewhere; Z66 Do not resuscitate; Z79.02 Long term (current) use of antithrombotics/antiplatelets; Z79.82 Long term (current) use of aspirin; Z79.899 Other long term (current) drug therapy; Z87.891 Personal history of nicotine dependence
CPT/HCPCS: 36415; 71045; 71250; 76705; 78582; 80048; 80053; 81001; 82803; 83605; 83880; 84443; 84484; 85025; 85027; 85049; 85379; 85730; 87040; 87077; 87086; 87088; 87186; 87428; 87633; 93005; 93306; 94640; 94762; 97110; 97162; 97166; 97530; 97535; 99251; 99285; A9540; A9567; J7030; J7040; P9612; Q9957; A4216; C8929; G0463; J1940; J2405

== ENCOUNTER → 2022-12-08 | Outpatient (REF) | payer MEDICARE, OTHER, SELFPAY ==
[2022-12-08 08:31] LABS: Mucous, Urine 0 SEEN /hpf (<or=2+); Squamous Epithelial Cells - UA 0 SEEN /hpf (0-5)
[2022-12-08 09:22] LABS: Color, Urine Yellow (Yellow); Glucose, Dipstick Normal (Normal); Ketone-Dipstick Negative (Negative); Leukocyte Esterase-Dipstick 500 /ul (Negative); Nitrite-Dipstick Positive (Negative); Occult Blood-Urine 10 /ul (Negative); Protein-Dipstick 100 mg/dl (Negative); Urine Bilirubin Dipstick Negative (Negative); Urine Clarity Turbid (Clear); Urine Urobilinogen Normal (Normal)
[2022-12-08 09:30] LABS: Bacteria 2+ /hpf (None Seen); Red Blood Cells-Urine 0-5 SEEN /hpf (0-5); Triple Phosphate Crystals Ur 1+ /hpf (<or=1+); White Blood Cells 25-50 SEEN /hpf (0-5)
== END ==
PROVIDERS: PCP Family Medicine; Referring Provider Family Medicine; Visit Provider Family Medicine
DX: N39.0 Urinary tract infection, site not specified (principal)
CPT/HCPCS: 81001; 87077; 87086; 87088; 87186